=== PATIENT | male | born 1990 | race Caucasian/White ===

== ENCOUNTER 2022-06-01 15:18 | Emergency (ER) | payer BC, MEDICAID, SELFPAY ==
[2022-06-01 15:37] VITALS: BP 114/73; PULSE 76; RESP 16; TEMP 36.3; O2SAT 98
--- NOTE | 2022-06-01 16:06 | ED.URI ---
HPI - URI/Sore Throat General Chief Complaint: Upper Respiratory Infection Stated Complaint: sore throat cough Time Seen by Provider: 06/01/22 16:06 Source: patient and RN notes reviewed Mode of arrival: ambulatory Limitations: no limitations History of Present Illness HPI Narrative: 31-year-old male presents with concern for sore throat. Reports 9 day history of swollen tonsils, sore throat, cough. Reports he has been taking DayQuil and NyQuil without relief. MD elicited complaint: sore throat Related Data Allergies Allergy/AdvReac Type Severity Reaction Status Date / Time No Known Allergies Allergy Verified 06/01/22 15:44 Review of Systems Review of Systems: CONSTITUTIONAL: Reports malaise EYES: Denies visual changes, redness, or discharge. ENT: Reports rhinorrhea, postnasal drainage, and sore throat. CARDIOVASCULAR: Denies chest pain, palpitations, or edema. RESPIRATORY: Reports cough. Denies dyspnea. GASTROINTESTINAL: Denies abdominal pain, nausea, vomiting, diarrhea SKIN: Denies rash or itching. MUSCULOSKELETAL: Denies myalgia. NEUROLOGIC: Denies headache. All systems reviewed & are unremarkable except as noted in HPI and below PMFSH Comments At time of signature, agree with nursing past medical, surgical, social and family history. There is no relevant family history pertinent to the presenting complaint Exam Narrative: GENERAL: Well-appearing, well-nourished, and in no acute distress. HEAD: Normocephalic EYES: PERRLA, conjunctivae clear ENT: Nares clear. Mucous membranes moist. TM pearly sanchez with dull light reflex bilaterally; no tragal tenderness. Oropharynx erythematous without lesions. Tonsils enlarged with exudate, no drooling, no hoarseness, no trismus, uvula midline. NECK: Supple. No lymphadenopathy CHEST: Clear to auscultation, breath sounds equal. No wheezing, rhonchi, rales, or stridor. No respiratory distress, speaks in full sentences. HEART: Regular rate and rhythm. No murmur heard. SKIN: Warm, dry, no rash. NEURO: Alert and oriented x3. PSYCH: Normal mood and affect Course Course Emergency Course: Patient is aware of diagnosis, understands and agrees to treatment plan. Anticipatory guidance given. Patient agrees to follow-up as directed and is aware of reasons to seek care at the emergency department. Portions of this record may have been created with voice recognition software Level of Care: Express Care Visit Vital Signs Vital signs: Vital Signs Temperature 97.4 F L 06/01/22 15:37 Pulse Rate 76 06/01/22 15:37 Respiratory Rate 16 06/01/22 15:37 Blood Pressure 114/73 06/01/22 15:37 Pulse Oximetry 98 06/01/22 15:37 Oxygen Delivery Room Air 06/01/22 15:37 Temperature 97.4 F L 06/01/22 15:37 Pulse Rate 76 06/01/22 15:37 Respiratory Rate 16 06/01/22 15:37 Blood Pressure 114/73 06/01/22 15:37 Pulse Oximetry 98 06/01/22 15:37 Oxygen Delivery Room Air 06/01/22 15:37 Reviewed. MDM - URI/Sore Throat MDM Narrative Medical decision making narrative: Differential diagnosis considered: Thomson virus, strep pharyngitis, allergic rhinitis, upper respiratory tract infection, sinusitis, rhinosinusitis, nasopharyngitis. viral pharyngitis, otitis media, otitis externa, pneumonia, bronchitis, viral cough syndrome, viral syndrome, and influenza. Exam findings show no acute concerns or changes; patient is non-toxic appearing and is in no distress. Patient is appropriate for outpatient treatment and follow-up. Lab Data Attestation: I reviewed the patient's lab results. Critical Care Time Critical Care Time Critical Care Time: No Discharge Plan Discharge Clinical Impression: Acute tonsillitis Patient Disposition: Home, Self-Care Condition: Stable Instructions: Antibiotic Form, Tonsillitis (ED) Additional Instructions: -Take the medication as prescribed. Throw away the toothbrush after 24hours of antibiotic. -Eat and drink things that are easy to s
== END 2022-06-01 16:17 | disposition home or self-care (01) ==
PROVIDERS: Emergency Provider Nurse Practitioner
DX: J03.90 Acute tonsillitis, unspecified (principal)
CPT/HCPCS: 99213; G0463

== ENCOUNTER 2022-07-19 12:04 | Emergency (ER) | payer BC, MEDICAID, SELFPAY ==
[2022-07-19 12:10] VITALS: BP 108/79; PULSE 96; RESP 16; TEMP 37.5; O2SAT 96
--- NOTE | 2022-07-19 12:32 | ED.URI ---
HPI - URI/Sore Throat General Chief Complaint: Upper Respiratory Infection Stated Complaint: Congestion/Sore Throat Time Seen by Provider: 07/19/22 12:32 Source: patient, RN notes reviewed and old records reviewed Mode of arrival: ambulatory Limitations: no limitations History of Present Illness HPI Narrative: 31 year old male who presents to [facility] care with complaints of sinus congestion and sore throat that started yesterday with no reported fevers, chills or sweats. Patient reports that he has had COVID vaccinations but has not had flu shot. Patient reports that he took home COVID test yesterday which was negative. Patient has been taking Tylenol, Ibuprofen and NyQuil for his symptoms. MD elicited complaint: sore throat, rhinorrhea and nasal congestion Pertinent past history: other (tonsillitis) Pain scale (0-10): 3 Treatments prior to arrival: acetaminophen, ibuprofen and other (NyQuil) Related Data Allergies Allergy/AdvReac Type Severity Reaction Status Date / Time No Known Allergies Allergy Verified 06/01/22 15:44 Review of Systems Review of Systems: CONSTITUTIONAL: Denies malaise, chills, sweats, or fever. EYES: Denies visual changes, redness, or discharge. ENT: Reports rhinorrhea, congestion, sinus pain, no otalgia, positive sore throat. CARDIOVASCULAR: Denies chest pain, palpitations, or edema. RESPIRATORY: Reports no cough.? Denies dyspnea. GASTROINTESTINAL: Denies abdominal pain, nausea, vomiting, diarrhea SKIN: Denies rash or itching. MUSCULOSKELETAL: Denies myalgia. NEUROLOGIC: Denies headache. All systems reviewed & are unremarkable except as noted in HPI and below PMFSH Past Medical History Medical History (Updated 07/21/22 @ 16:49 by Nurys Rodriguez NP) No pertinent past medical history Surgical History Surgical History (Updated 07/21/22 @ 16:50 by Nurys Rodriguez NP) No significant past surgical history Social History Social History (Updated 07/21/22 @ 16:48 by Nurys Rodriguez NP) Smoking status: Never smoker Gender identity (if verbalized by the patient): Male Comments At time of signature, agree with nursing past medical, surgical, social and family history. There is no relevant family history pertinent to the presenting complaint Exam Narrative: GENERAL: Well-appearing, well-nourished, and in no acute distress. HEAD: Normocephalic EYES: PERRLA, conjunctivae clear ENT: Nares clear turbinates edematous and erythematous, clear discharge. Mucous membranes moist. TM pearly sanchez with dull light reflex bilaterally; no tragal tenderness. Oropharynx erythematous without lesions. Tonsils mildly enlarged and without exudate, no drooling, no hoarseness, no trismus, uvula midline.post nasal drainage noted. NECK: Supple. No lymphadenopathy CHEST: Clear to auscultation, breath sounds equal. No wheezing, rhonchi, rales, or stridor. No respiratory distress, speaks in full sentences.SAO2 96% on room air HEART: Regular rate and rhythm. No murmur heard. SKIN: Warm, dry, no rash. NEURO: Alert and oriented x3. PSYCH: Normal mood and affect Course Course Emergency Course: Patient is aware of diagnosis, understands and agrees to treatment plan.? Anticipatory guidance given.? Patient agrees to follow-up as directed and is aware of reasons to seek care at the emergency department. Portions of this record may have been created with voice recognition software Level of Care: Express Care Visit Vital Signs Vital signs: Vital Signs Temperature 37.5 C 07/19/22 12:10 Pulse Rate 07/19/22 12:10 Respiratory Rate 16 07/19/22 12:10 Blood Pressure 108/79 07/19/22 12:10 Pulse Oximetry 07/19/22 12:10 Oxygen Delivery Room Air 07/19/22 12:10 Temperature 37.5 C 07/19/22 12:10 Pulse Rate 07/19/22 12:10 Respiratory Rate 16 07/19/22 12:10 Blood Pressure 108/79 07/19/22 12:10 Pulse Oximetry 07/19/22 12:10 Oxygen Delivery Room
== END 2022-07-19 13:11 | disposition home or self-care (01) ==
PROVIDERS: Emergency Provider Registered Nurse; PCP Family Medicine
DX: J06.9 Acute upper respiratory infection, unspecified (principal)
CPT/HCPCS: 87081; 87880; 99213; G0463